=== PATIENT | female | born 1975 | race Caucasian/White ===

== ENCOUNTER 2018-04-12 22:03 | Emergency (ER) | payer SELFPAY ==
[2018-04-12 22:28] VITALS: BP 115/73; PULSE 72; TEMP 97.6; BMI 31.1
--- NOTE | 2018-04-12 22:49 | PDOC ---
History of Present Illness - General Chief Complaint: Pain, Acute Stated Complaint: STOMACH PAIN - History of Present Illness Initial Comments: Megan Vargas is an otherwise healthy 42yo woman who recently moved from [facility] who presents stating that she has a UTI. Ms Vargas has a history of frequent UTI for the past 20 years. She states that she currently has dysuria and frequency, which are her normal symptoms. She has been having the dysuria and frequency for the past 2.5 days (since Friday) and was taking acetaminophen 500mg every 4 hours for pain. Today, she started noticing hematuria as well. She has had this symptom in the past, but she decided that she needed to be seen by a doctor for treatment at this point. In the past, she has taken antibiotics with good results and resolution of her symtpoms. She has never seen a specialist to determine if there are any anatomical causes of her frequent infections. She currently denies any fevers, shaking chills, nausea/vomiting, change in bowel habits. Her LMP was on 03/22/18 and was normal; she has no vaginal discharge or other vaginal complaints. Past History - Past Medical History Allergies/Adverse Reactions: Allergies Allergy/AdvReac Type Severity Reaction Status Date / Time No Known Allergies Allergy Verified 04/12/18 23:17 Home Medications: Ambulatory Orders Sulfamethoxazole/Trimethoprim [Bactrim Ds -] 1 tab PO BID #14 tablet 04/12/18 COPD: No - Immunization History Immunization Up to Date: Yes - Suicide/Smoking/Psychosocial Hx Smoking History: Never smoked Hx Alcohol Use: No Drug/Substance Use Hx: No Substance Use Type: None Review of Systems - Review of Systems Comments:: General: No fevers, no chills, no weight or appetite change, no malaise HEENT: No changes in vision, no changes in hearing, no congestion, no sore throat CV: No chest pain, no palpitations, no LE edema Pulm: No SOB, no cough, no wheezing GI: No nausea or vomiting, no change in bowel habits, no melena : See HPI Musc: No back pain, no joint swelling, no recent injury Skin: No rash, no lesions, no erythema Endo: No excessive thirst, no heat/cold intolerance Heme: No unusual bruising or bleeding, no swollen glands Neuro: No syncope, no numbness/tingling, no focal weakness Vasc: No claudication Psych: No recent change in mood, no SI or HI *Physical Exam - Vital Signs Last Vital Signs Temp Pulse Resp BP Pulse Ox 97.6 F 72 16 115/73 98 04/12/18 22:21 04/12/18 22:21 04/12/18 22:21 04/12/18 22:21 04/12/18 22:21 - Physical Exam Comments: General: Comfortable, no acute distress HEENT: PERRL, EOMI, MMM, voice normal, normal neck ROM, no LAD Cards: RRR, no murmur appreciated Pulm: Comfortable on room air, clear to auscultation bilaterally Abd: Soft, nontender, nondistended : No CVA tenderness. Mild suprapubic tenderness with deep palpation. Ext: Atraumatic. No LE edema. ROM intact. Strength 5/5 and equal bilaterally Vasc: Extremities WWP. Palpable radial and pedal pulses bilaterally Skin: Normal color, no rashes or lesions Neuro: A&Ox3, CN grossly intact, normal speech, motor/sensory grossly intact and symmetric Psych: Mood appropriate to situation Medical Decision Making - Medical Decision Making 04/12/18 23:31 Megan Vargas is an otherwise healthy 42yo woman with a PMH of frequent UTI who presents with dysuria, frequency and hematuria starting two days ago. - History of frequent UTI. Cystitis is the most likely cause of her symptoms - No systemic symptoms or CVA tenderness suggesting pyelonephritis - UA and urine culture sent. Will evaluate prior to ordering any additional testing. - Ibuprofen 800mg for pain 04/12/18 23:45 - UA with WBC, RBC, +leukocyte esterase. - Will treat for recurrent UTI. Will need follow up with urology or uro- gynecology for additional evaluation to determine the cause of her frequent infections. Discussed with Dr Carolina. Татьяна Mendes PGY1 *DC/Admit/Observation/Transfer Diagnosis at time of Disposition: UTI (urinary tract infection) - Discharge Dispostion Disposition: HOME Condition at time of disposition: Stable Decision to Admit order: No - Prescriptions Prescriptions: Sulfamethoxazole/Trimethoprim [Bactrim Ds -] 1 tab PO BID #14 tablet - Referrals Referrals: [facility] [place] [place] [Provider Group] Jam Hidalgo MD [Staff Physician] - - Patient Instructions Printed Discharge Instructions: DI for Urinary Tract Infection (UTI) Additional Instructions: Discharge Instructions: - You were seen in the ED for a urinary tract infection - You have been prescribed an antibiotic. Please continue to take this antibiotic twice per day for the next 7 days - You may use acetaminophen (Tylenol) 1000mg or ibuprofen (Motrin, Advil) 600mg as needed for pain. You may alternate these medications every 3-4 hours if needed for continued pain for the next 2 days. If your pain continues to be severe after two days, see your regular doctor or return to the ED. - Make an appointment to follow up with a hotbed transfer operator for additional evaluation - You should also make an appointment to see a regular medical doctor for follow up within the next week. You have been referred to the internal medicine resident clinic. - Seek medical care if your symptoms do not improve after 2 days, if you start to have back pain along with fevers to 101F, or if you have any concerning symptoms or a medical emergency. Print Language: MARSHALLESE - Post Discharge Activity
--- NOTE | 2018-04-12 23:06 | PDOC ---
Attending Attestation - HPI HPI: 04/12/18 23:26 The patient is a 42 year old female, with a significant past medical history of frequent UTIs, who presents to the emergency department with, 2 days of dysuria and hematuria. As per patient, she recently immigrated from [place] She notes her symptoms are similar to previous UTIs. She denies recent fevers, chills, headache or dizziness. She denies recent nausea, vomit, diarrhea or constipation. She denies recent chest pain or shortness of breath. Allergies: NKDA <Ciara Angel - Last Filed: 04/12/18 23:26> - Resident Resident Name: Татьяна Mendes - ED Attending Attestation I have performed the following: I have examined & evaluated the patient, The case was reviewed & discussed with the resident, I agree w/resident's findings & plan, Exceptions are as noted - HPI HPI: 04/12/18 23:07 42-year-old female presents with suprapubic pain and dysuria - Physicial Exam PE: 04/13/18 00:04 wnwd 42 yo female w suprapubic pain head -ncat neck -supple lungs- cta b/l cvs -[id number] abd -no rebound,no guarding ext -no e/c/c neuro- no gross focal neuro deficits skin -warm and dry psych appropriate - Medical Decision Making 04/13/18 00:05 UA reveals + UTI pt started on bactrim and RX emailed to [facility] [place] 04/13/18 00:14 <Aida Carolina - Last Filed: 04/13/18 00:14> Attestations - Attestations 04/12/18 23:26 Documentation prepared by Ciara Angel, acting as medical claims representative for Aida Carolina MD. <Ciara Angel - Last Filed: 04/12/18 23:26>
[2018-04-12 23:26] LABS: URINE APPEARANCE SLCLOUDY; URINE BILIRUBIN NEGATIVE (<2.0 mg/dL); URINE COLOR LTYELLOW; URINE GLUCOSE (UA) NEGATIVE (NEGATIVE); URINE KETONE NEGATIVE (NEGATIVE); URINE LEUK ESTERASE 3+ (NEGATIVE); URINE NITRITE NEGATIVE (NEGATIVE); URINE PROTEIN NEGATIVE (NEGATIVE); URINE UROBILINOGEN NEGATIVE mg/dL (0.2-1.0)
[2018-04-12 23:35] LABS: EPI CELLS RARE /HPF (FEW); URINE BACTERIA RARE /hpf (NONE SEEN)
[2018-04-12] MEDS ORDERED: IBUPROFEN 400 MG TABLET (FP) PO ONE (23:47)
[2018-04-13] MEDS ORDERED: SULFAMETHOXAZOLE/TRIMETHOPRIM 800MG/160MG D.S. TABLET PO ONE (00:01)
[2018-04-13] MEDS ORDERED: IBUPROFEN 400 MG TABLET (FP) PO ONE (00:11)
== END 2018-04-13 00:46 | disposition home or self-care (01) ==
LOC: JER 22:03
DX: N39.0 Urinary tract infection, site not specified (principal)
CPT/HCPCS: 81003; 81015; 87086; 87186; 99282-25

== ENCOUNTER 2018-09-24 10:51 | Emergency (ER) | payer SELFPAY ==
[2018-09-24 11:00] VITALS: TEMP 98.1; BMI 28.3
[2018-09-24] MEDS ORDERED: SODIUM CHLORIDE 0.9% 1000 ML INFUS.BAG IV ONE (11:26)
--- NOTE | 2018-09-24 12:08 | PDOC ---
History of Present Illness - General Chief Complaint: Vaginal Bleeding Stated Complaint: 7 WKS W/ BLEEDING Time Seen by Provider: 09/24/18 11:12 History Source: Patient Exam Limitations: No Limitations - History of Present Illness Initial Comments: 09/24/18 12:04 43 yo F currently aproxximately 7 weeks , here with vaginal bleeding. and abd cramping. LMP 08/06/18 . bleeding pipe cutter than a period, bright red. no h/o ectopic or miscarriage. no n/v no f/c no urinary complaints. Past History - Past Medical History Allergies/Adverse Reactions: Allergies Allergy/AdvReac Type Severity Reaction Status Date / Time No Known Allergies Allergy Verified 04/12/18 23:17 COPD: No GI Disorders: No Hypercholesterolemia: No - Surgical History Cholecystectomy: No Lung Surgery: No - Immunization History Immunization Up to Date: Yes - Suicide/Smoking/Psychosocial Hx Smoking History: Never smoked Have you smoked in the past 12 months: No Information on smoking cessation initiated: No Hx Alcohol Use: No Drug/Substance Use Hx: No Substance Use Type: None Review of Systems - Review of Systems Constitutional: No: Diaphoresis, Fever HEENTM: No: Blurred Vision Respiratory: No: Cough, Orthopnea Cardiac (ROS): No: Chest Pain ABD/GI: No: Abdominal Distended : Yes: Other (other vaginal bleeding abd cramping.) Integumentary: Yes: Other All Other Systems: Reviewed and Negative *Physical Exam - Vital Signs Last Vital Signs Temp Pulse Resp BP Pulse Ox 98.1 F 69 18 123/62 96 09/24/18 10:57 09/24/18 10:57 09/24/18 10:57 09/24/18 10:57 09/24/18 10:57 - Physical Exam Comments: 09/24/18 12:07 awake alert lungs clear bilaterally heart rrr no mrg abd soft mild suprapubic ttp. no rebound no guarding. no cva tendernsss. pelvic blood in os, os closed. mild left adnexal tenderness. palp massess. skin warm and dry. ED Treatment Course - LABORATORY CBC & Chemistry Diagram: 09/24/18 12:18 09/24/18 12:18 - RADIOLOGY Radiology Studies Ordered: Category Date Time Status TRANSVAGINAL US PREG [US] Stat Ultrasound 09/24/18 12:02 Ordered Medical Decision Making - Medical Decision Making 09/24/18 12:08 43 yo 7 weeks , with vaginal bleeding. differential ectopic threated or incomlete ab, breakthrough bleeding. plan labs tvus ivf, bhcg 09/24/18 14:05 bhcg is 6, tvus with empty uterus, left ovarian cyst 3 x 2 cm. noted LFT elevation. will obtain ruq sono eval for gallbladder disease. vs. fatty liver. will require serial bhcg . 09/24/18 14:07 blood type a positive. 09/24/18 18:18 pt ruq ultrasound with biliary colic, fatty liver. will refer to GI. explained to patiet. will require repeat bhcg in 48 hours. dc home. *DC/Admit/Observation/Transfer Diagnosis at time of Disposition: Incomplete , Fatty liver, Cholelithiasis - Discharge Dispostion Disposition: HOME Condition at time of disposition: Improved Decision to Admit order: No - Referrals Referrals: Ephraim Chopra MD [Staff Physician] - Tray Stewart DO [Staff Physician] - - Patient Instructions Printed Discharge Instructions: DI for Ectopic , Miscarriage, Liver Function Tests Additional Instructions: your liver function test are elevated today. you will need to see a horticulture professor call to schedule you can see dr. Diaz see referral information for phone number. you can also see dr. Chopra Obstetrico. call to schedule. your hormone is extremely low only BHCG of 6. this could mean a failed or abnormal or early . could still be an ectopic . you will need to have repeat bhcg lab test in 48 - 72 hours. return for sudden or worsening pain or any concerns. Soares prueba de funcin heptica est elevada hoy. Tendr que sara a un gastroenterlogo para programar. Puede sara el dr. Diaz sara informacin de referencia para el nmero de telfono. Tambin puedes sara el dr. Chopra Obstetrico. llamar para programar soares hormona del embarazo es extremadamente baja solo BHCG de 6. esto podra significar un embarazo fallido o anormal o un embarazo temprano. Todava podra ser un embarazo ectpico. Tendr que repetir la prueba de laboratorio de bhcg en 48 a 72 horas. Regrese por dolor repentino o que empeora o por cualquier preocupacin. Print Language: AMHARIC - Post Discharge Activity
[2018-09-24 12:25] LABS: BASO % 0.8 % (0-2.0); EOS % 2.7 % (0-4.5); HEMATOCRIT 45.8 % (32.4-45.2); HEMOGLOBIN 15.5 GM/dL (10.7-15.3); LYMPH % 26.5 % (8-40); MCH 30.1 pg (25.7-33.7); MCHC 33.8 g/dl (32.0-36.0); MEAN CELL VOLUME 89.2 fl (80-96); MEAN PLT VOLUME 7.9 fl (7.5-11.1); MONO % 4.1 % (3.8-10.2); NEUT % 65.9 % (42.8-82.8); PLATELET COUNT 294 K/MM3 (134-434); RBC 5.13 M/mm3 (3.60-5.2); RDW 12.9 % (11.6-15.6); WHITE BLOOD COUNT 8.8 K/mm3 (4.0-10.0)
[2018-09-24 12:27] LABS: EPI CELLS 2.3 /HPF (0-5/HPF); URINE APPEARANCE CLEAR; URINE BACTERIA 77.7 /hpf (NEGATIVE); URINE BILIRUBIN NEGATIVE (NEGATIVE); URINE CASTS 2 /lpf (0-8); URINE COLOR YELLOW; URINE GLUCOSE (UA) NEGATIVE (NEGATIVE); URINE KETONE NEGATIVE (NEGATIVE); URINE LEUK ESTERASE TRACE (NEGATIVE); URINE NITRITE NEGATIVE (NEGATIVE); URINE PROTEIN NEGATIVE (NEGATIVE); URINE RBC 9 /hpf (0-4); URINE UROBILINOGEN 0.2 mg/dL (0.2-1.0); URINE WBC 3 /hpf (0-5)
[2018-09-24 12:57] LABS: ALBUMIN 3.8 g/dl (3.4-5.0); ALK PHOS 157 U/L (45-117); ANION GAP 5 MMOL/L (8-16); BILIRUBIN,TOTAL 0.6 mg/dL (0.2-1); BLOOD UREA NITROGEN 7 mg/dL (7-18); CALCIUM 9.5 mg/dL (8.5-10.1); CHLORIDE 104 mmol/L (98-107); CO2 27 mmol/L (21-32); CREATININE 0.5 mg/dL (0.55-1.3); GLUCOSE,RANDOM 95 mg/dL (74-106); SGOT/AST 79 U/L (15-37); SGPT/ALT 111 U/L (13-61); SODIUM 137 mmol/L (136-145); TOT PROT 8.6 g/dl (6.4-8.2)
[2018-09-24 18:56] VITALS: BP 128/82; PULSE 87
== END 2018-09-24 18:56 | disposition home or self-care (01) ==
LOC: JER 10:51
DX: O26.891 Other specified pregnancy related conditions, first trimester (principal); O03.4 Incomplete spontaneous abortion without complication; R94.5 Abnormal results of liver function studies; K80.20 Calculus of gallbladder without cholecystitis without obstruction; N83.202 Unspecified ovarian cyst, left side; Z3A.01 Less than 8 weeks gestation of pregnancy
CPT/HCPCS: 36415; 76705-TC; 76817-TC; 80053; 81003; 84702; 85025; 86850; 86900; 86901; 99282-25; J7030

== ENCOUNTER 2019-07-02 10:27 | Emergency (ER) | payer OTHER ==
[2019-07-02 10:37] VITALS: BMI 34.5
[2019-07-02] MEDS ORDERED: KETOROLAC TROMETHAMINE 30 MG/1 ML VIAL IM ONE (11:48)
[2019-07-02] MEDS ORDERED: DEXAMETHASONE SOD PHOSPHATE 10 MG/1 ML VIAL IM ONE (11:48)
[2019-07-02] MEDS ORDERED: KETOROLAC TROMETHAMINE 30 MG/1 ML VIAL ONE (11:52)
[2019-07-02] MEDS ORDERED: DEXAMETHASONE SOD PHOSPHATE 10 MG/1 ML VIAL ONE (11:52)
--- NOTE | 2019-07-02 12:01 | PDOC ---
History of Present Illness - General Chief Complaint: Pain, Acute Stated Complaint: RT. SIDE FACIAL PAIN/ NUMBING Time Seen by Provider: 07/02/19 11:12 History Source: Patient Exam Limitations: Clinical Condition - History of Present Illness Initial Comments: 07/02/19 12:00 Patient with no significant past medical history present with complaint of right -sided facial pain with feeling of numbness sensation to right side of face since yesterday. Patient reported pain started suddenly yesterday morning which she took Motrin which helped the pain mildly back came back again with numbing sensation this morning. Patient report having similar episode over a year ago and was seen by neurologist who gave her medication due to some sort of infection she had which she does not know which helped with symptoms. Patient reported mild photophobia but denies dizziness, nausea, vomiting, blurry vision, chest pain, palpitation. Denies any other symptoms Is this a multiple visit Asthma Patient?: No Timing/Duration: 24 hours Past History - Past Medical History Allergies/Adverse Reactions: Allergies Allergy/AdvReac Type Severity Reaction Status Date / Time No Known Allergies Allergy Verified 07/02/19 10:33 Home Medications: Ambulatory Orders Naproxen 500 mg PO BID PRN #20 tablet 07/02/19 predniSONE [Deltasone -] 20 mg PO BID 5 Days #10 tablet 07/02/19 Asthma: Yes COPD: No Diabetes: Yes GI Disorders: No Hypercholesterolemia: No - Surgical History Cholecystectomy: No Lung Surgery: No - Reproductive History (#): 2 Para: 1 - Immunization History Immunization Up to Date: Yes - Psycho Social/Smoking Cessation Hx Smoking History: Never smoked Have you smoked in the past 12 months: No Hx Alcohol Use: No Drug/Substance Use Hx: No Substance Use Type: None Review of Systems - Review of Systems Able to Perform ROS?: Yes Is the patient limited Occitan proficient: No Constitutional: No: Chills, Fever, Malaise HEENTM: Yes: Symptoms Reported, See HPI, Blurred Vision (mild photophobia). No : Eye Pain, Tearing, Recent change in vision, Double Vision, Cataracts, Ear Pain , Ocular Prothesis, Ear Discharge, Nose Pain, Nose Congestion, Tinnitus, Nose Bleeding, Hearing Loss, Throat Pain, Throat Swelling, Mouth Pain, Dental Problems, Difficulty Swallowing, Mouth Swelling, Other Respiratory: No: Symptoms reported, See HPI, Cough, Orthopnea, Shortness of Breath, SOB with Exertion, SOB at Rest, Stridor, Wheezing, Productive cough, Hemoptysis, Other Cardiac (ROS): No: Symptoms Reported, See HPI, Chest Pain, Edema, Irregular Heart Rate, Lightheadedness, Palpitations, Syncope, Chest Tightness, Other ABD/GI: No: Symptoms Reported, See HPI, Abd. Pain w/ defecation, Constipated, Diarrhea, Difficulty Swallowing, Nausea, Vomiting, Abdominal cramping : No: Symptoms Reported Musculoskeletal: No: Symptoms Reported Neurological: Yes: Symptoms reported, See HPI, Headache (rice side facial pain) . No: Dizziness All Other Systems: Reviewed and Negative *Physical Exam - Vital Signs Last Vital Signs Temp Pulse Resp BP Pulse Ox 97.6 F 87 18 142/68 100 07/02/19 10:34 07/02/19 10:34 07/02/19 10:34 07/02/19 10:34 07/02/19 10:34 - Physical Exam 07/02/19 11:57 GENERAL: Well developed, well nourished. Awake and alert. No acute distress. HEENT: Normocephalic, atraumatic. PERRLA, EOMI. No conjunctival pallor. Sclera are non-icteric. Moist mucous membranes. Oropharynx is clear. NECK: Supple. Full ROM. CARDIOVASCULAR: Regular rate and rhythm. No murmurs, rubs, or gallops. Distal pulses are 2+ and symmetric. PULMONARY: No evidence of respiratory distress. Lungs clear to auscultation bilaterally. No wheezing, rales or rhonchi. ABDOMINAL: Soft. Non-tender. Non-distended. No rebound or guarding. No organomegaly. Normoactive bowel sounds. MUSCULOSKELETAL Normal range of motion at all joints. SKIN: Warm and dry. Normal capillary refill. No rashes. No jaundice. NEUROLOGICAL: Alert, awake, appropriate. Gait is normal without ataxia. No facial drooling, bilateral facial symmetric, normal frowning. Mild tenderness over right trigeminal nerve PSYCHIATRIC: Cooperative. Good eye contact. Appropriate mood General Appearance: Yes: Nourished, Appropriately Dressed. No: Apparent Distress HEENT: positive: GEETA, Normal ENT Inspection Medical Decision Making - Medical Decision Making 07/02/19 12:01 Patient with no significant past medical history present with complaint of right -sided facial pain with feeling of numbness sensation to right side of face since yesterday. Patient reported pain started suddenly yesterday morning which she took Motrin which helped the pain mildly back came back again with numbing sensation this morning. Patient report having similar episode over a year ago and was seen by neurologist who gave her medication due to some sort of infection she had which she does not know which helped with symptoms. Patient reported mild photophobia but denies dizziness, nausea, vomiting, blurry vision, chest pain, palpitation. Denies any other symptoms Clinical exam unremarkable with normal neuro exam. Facial exam symmetric with no facial drooling. Extraocular muscle intact and pupils equal and reflective to light bilateral. Mild tenderness over right trigeminal nerve to right cheek. No neuro deficit. Patient ambulating normal with normal gait. Symptoms likely trigeminal neuralgia. We will give a trial Toradol 30 mg IM and Decadron 10 mg IM. Reassess after 20 minutes 07/02/19 12:46 Patient reported improvement of pain with Toradol and Decadron. Patient symptoms likely trigeminal neuralgia and stable for discharge on outpatient management on prednisone p.o. twice daily for 5 days and naproxen as needed for pain with neurology follow-up Discharge - Discharge Information Problems reviewed: Yes Clinical Impression/Diagnosis: Trigeminal neuralgia Condition: Stable Disposition: HOME - Admission No - Additional Discharge Information Prescriptions: Naproxen 500 mg PO BID PRN #20 tablet PRN Reason: pain predniSONE [Deltasone -] 20 mg PO BID 5 Days #10 tablet - Follow up/Referral Referrals: Johanna Jaffe FNP [Primary Care Provider] - Jose Mccann MD [Staff Physician] - - Patient Discharge Instructions Patient Printed Discharge Instructions: DI for Trigeminal Neuralgia Additional Instructions: Your symptoms likely caused by nerve pain. Take prescribed medication as prescribed for pain. Follow-up with referred neurologist for follow-up of pain. Dottie sntomas probablemente causados ??por dolor nervioso. Cogswell la medicacin prescrita segn lo prescrito para el dolor. Seguimiento con un neurlogo referido para el seguimiento del dolor. Print Language: KOREAN - Post Discharge Activity
[2019-07-02 12:32] VITALS: BP 140/76; PULSE 82; TEMP 98.3
== END 2019-07-02 12:32 | disposition home or self-care (01) ==
LOC: JER 10:27
PROC: 3E023GC Introduction of Other Therapeutic Substance into Muscle, Percutaneous Approach (ICD-10-PCS; principal; 2019-07-02)
PROC: 3E0233Z Introduction of Anti-inflammatory into Muscle, Percutaneous Approach (ICD-10-PCS; 2019-07-02)
DX: G50.0 Trigeminal neuralgia (principal); J45.909 Unspecified asthma, uncomplicated; E11.9 Type 2 diabetes mellitus without complications
CPT/HCPCS: 96372; 99281-25; J1100

== ENCOUNTER 2020-09-01 10:46 | Emergency (ER) | payer OTHER ==
[2020-09-01 11:09] VITALS: TEMP 98.4; BMI 22.9
[2020-09-01] MEDS ORDERED: MAG HYDROX/AL HYDROX/SIMETH 30 ML UNIT-DOSE CUP PO ONE (11:36)
[2020-09-01] MEDS ORDERED: FAMOTIDINE 20 MG/50 ML IVPB 20 MG/50 ML MG IVPB ONE ×2 (11:36→11:52)
[2020-09-01] MEDS ORDERED: ACETAMINOPHEN 1000 MG/100 ML VIAL (NON FORMULARY) IVPB ONE (11:36)
[2020-09-01] MEDS ORDERED: MAG HYDROX/AL HYDROX/SIMETH 30 ML UNIT-DOSE CUP ONE (11:51)
[2020-09-01] MEDS ORDERED: ACETAMINOPHEN INJECTION 100 ML IVPB ONE (11:51)
[2020-09-01 12:24] LABS: BASO % 0.8 % (0-2.0); EOS % 2.1 % (0-4.5); HEMATOCRIT 38.6 % (32.4-45.2); HEMOGLOBIN 13.1 GM/dL (10.7-15.3); LYMPH % 25.2 % (8-40); MCH 29.9 pg (25.7-33.7); MCHC 33.9 g/dl (32.0-36.0); MEAN CELL VOLUME 88.2 fl (80-96); MONO % 4.9 % (3.8-10.2); PLATELET COUNT 260 K/MM3 (134-434); RBC 4.37 M/mm3 (3.60-5.2); RDW 13.4 % (11.6-15.6); WHITE BLOOD COUNT 6.8 K/mm3 (4.0-10.0)
[2020-09-01 12:43] LABS: CHLORIDE 110 mmol/L (98-107); POTASSIUM 3.9 mmol/L (3.5-5.1); SODIUM 143 mmol/L (136-145)
[2020-09-01 12:45] LABS: ALBUMIN 3.3 g/dl (3.4-5.0); BLOOD UREA NITROGEN 8.6 mg/dL (7-18); CALCIUM 8.8 mg/dL (8.5-10.1)
[2020-09-01 12:46] LABS: ANION GAP 7 MMOL/L (8-16); CO2 26 mmol/L (21-32); GLUCOSE,RANDOM 149 mg/dL (74-106); LIPASE 91 U/L (73-393)
[2020-09-01 12:49] LABS: CREATININE 0.5 mg/dL (0.55-1.3); SGOT/AST 28 U/L (15-37); SGPT/ALT 37 U/L (13-61)
[2020-09-01 12:51] LABS: BILIRUBIN,TOTAL 0.6 mg/dL (0.2-1)
[2020-09-01 12:52] LABS: ALK PHOS 115 U/L (45-117)
[2020-09-01 14:19] VITALS: BP 134/77; PULSE 73
== END 2020-09-01 14:18 | disposition home or self-care (01) ==
LOC: JER 10:46
PROC: 3E0333Z Introduction of Anti-inflammatory into Peripheral Vein, Percutaneous Approach (ICD-10-PCS; principal; 2020-09-01)
PROC: 3E033GC Introduction of Other Therapeutic Substance into Peripheral Vein, Percutaneous Approach (ICD-10-PCS; 2020-09-01)
DX: R07.9 Chest pain, unspecified (principal)
CPT/HCPCS: 36415; 71045-TC-FY; 80053; 83690; 84484; 85025; 93005; 93010; 99285-25; J0131

== ENCOUNTER 2021-08-15 17:53 | Emergency (ER) | payer OTHER ==
[2021-08-15 18:15] VITALS: BP 119/62; PULSE 86; TEMP 98; BMI 68.5
[2021-08-15 21:07] LABS: EPI CELLS 4 /uL (0-25.1); HYALINE CASTS 0 /uL (0-3.1); PH,URINE 6.5 (5.0-8.0); URINE APPEARANCE CLEAR; URINE BACTERIA 120 /uL (0-1359); URINE BILIRUBIN NEGATIVE (NEGATIVE); URINE COLOR YELLOW; URINE GLUCOSE (UA) NEGATIVE (NEGATIVE); URINE KETONE NEGATIVE (NEGATIVE); URINE LEUK ESTERASE 3+ (NEGATIVE); URINE NITRITE NEGATIVE (NEGATIVE); URINE PROTEIN NEGATIVE (NEGATIVE); URINE RBC 8 /uL (0-23.9); URINE UROBILINOGEN 0.2 mg/dL (0.2-1.0); URINE WBC 951 /uL (0-25.8)
[2021-08-15 21:20] LABS: BASO % 0.6 % (0-2.0); EOS % 4.4 % (0-4.5); HEMATOCRIT 41.1 % (32.4-45.2); HEMOGLOBIN 14.1 GM/dL (10.7-15.3); LYMPH % 26.1 % (8-40); MCH 29.7 pg (25.7-33.7); MCHC 34.3 g/dl (32.0-36.0); MEAN CELL VOLUME 86.4 fl (80-96); MEAN PLT VOLUME 8.2 fl (7.5-11.1); MONO % 4.8 % (3.8-10.2); NEUT % 64.1 % (42.8-82.8); PLATELET COUNT 226 10^3/uL (134-434); RBC 4.76 M/mm3 (3.60-5.2); RDW 13.4 % (11.6-15.6); WHITE BLOOD COUNT 8.6 K/mm3 (4.0-10.0)
[2021-08-15 21:43] LABS: CALCIUM 9.6 mg/dL (8.5-10.1)
[2021-08-15 21:44] LABS: ALBUMIN 3.9 g/dl (3.4-5.0); BLOOD UREA NITROGEN 9.7 mg/dL (7-18)
[2021-08-15 21:47] LABS: CREATININE 0.7 mg/dL (0.55-1.3)
[2021-08-15 21:49] LABS: BILIRUBIN,TOTAL 0.6 mg/dL (0.2-1)
[2021-08-16] MEDS ORDERED: NITROFURANTOIN MACROCRYSTAL 50 MG CAPSULE (FP) PO ONE (23:45)
== END 2021-08-16 01:13 | disposition home or self-care (01) ==
LOC: JERFT 17:53
DX: N39.0 Urinary tract infection, site not specified (principal)
CPT/HCPCS: 36415; 74177-TC; 76830-TC; 80053; 81003; 84703; 85025; 87086; 99285-25; Q9967